=== PATIENT | female | born 1955 ===

== ENCOUNTER 2018-11-14 08:23 | Outpatient (CLI) | payer BC | END 2018-11-14 08:24 | disposition home or self-care (01) | LOC: RAD 08:23 | DX: Z12.31 Encounter for screening mammogram for malignant neoplasm of breast (principal) ==

== ENCOUNTER 2018-12-02 09:30 | Outpatient (CLI) | payer BC | END 2018-12-02 09:31 | disposition home or self-care (01) | LOC: RAD 09:30 ==